=== PATIENT | male | born 1985 | race Caucasian/White ===

== ENCOUNTER 2022-02-11 15:10 | Emergency (ER) | payer OTHER ==
[2022-02-11 15:17] VITALS: BP 125/81
[2022-02-11 15:39] LABS: BASO # 0.08 K/mm3 (0.02-0.10); EOS % 1.9 % (0.0-4.0); HEMATOCRIT 39.7 % (42.0-52.0); HEMOGLOBIN 12.6 g/dL (13.5-18.0); LYMPH# 2.11 K/mm3 (1.50-4.00); MEAN CELL VOLUME 77 fl (78-100); MEAN CORPUSCULAR HEMOGLOBIN 25 pg (27-31); MEAN CORPUSCULAR HGB CONC 32 g/dL (33-37); MEAN PLATELET VOLUME 9.2 fl (7.4-10.4); NEU # 7.34 K/mm3 (1.40-6.50); PLATELET COUNT 319 K/mm3 (130-400); RED BLOOD COUNT 5.13 M/mm3 (4.20-5.60); RED CELL DISTRIBUTION WIDTH 14.2 % (11.5-14.5); WHITE BLOOD COUNT 10.6 K/mm3 (4.8-10.8)
[2022-02-11 15:51] LABS: ALBUMIN 4.3 g/dL (3.5-5.0); POTASSIUM 3.7 mmol/L (3.5-5.1)
[2022-02-11 15:52] LABS: CALCIUM 9.3 mg/dL (8.3-10.5)
[2022-02-11 15:54] LABS: TOTAL PROTEIN 7.1 g/dL (6.4-8.3)
[2022-02-11 15:57] LABS: TOTAL BILIRUBIN 0.8 mg/dL (0.2-1.2)
[2022-02-11] MEDS ORDERED: OXYCODONE HCL10 M1 PO ×2 (16:16→16:17)
== END 2022-02-11 16:19 | disposition home or self-care (01) ==
LOC: ED 15:10
PROVIDERS: Family Medicine
DX: K64.4 Residual hemorrhoidal skin tags (principal); D64.9 Anemia, unspecified; Z28.310 Unvaccinated for COVID-19

== ENCOUNTER → 2022-02-11 | Day surgery (SDC) | payer OTHER ==
[~2022-02-11] MED LIST: OXYCODONE HCL10 M1 PO
== END ==
LOC: MSO 07:14
DX: K63.5 Polyp of colon (principal); K62.6 Ulcer of anus and rectum; K62.5 Hemorrhage of anus and rectum; K64.8 Other hemorrhoids; K64.4 Residual hemorrhoidal skin tags
CPT/HCPCS: 00811; J2250; J2704; J3010; J7120

== ENCOUNTER 2024-03-01 14:01 | Emergency (ER) | payer OTHER ==
[~2024-03-01] VITALS: Ht 175.3 cm; Wt 93.2 kg
[2024-03-01] MEDS ORDERED: Ketorolac 30 MG/ML VIAL IM ONE (15:45)
[2024-03-01] MEDS ORDERED: CYCLOBENZAPRINE10 M1 PO (16:11)
[2024-03-01 16:19] VITALS: BP 118/88
== END 2024-03-01 16:28 | disposition home or self-care (01) ==
LOC: ED 14:01
DX: S19.9XXA Unspecified injury of neck, initial encounter (principal); F17.210 Nicotine dependence, cigarettes, uncomplicated; W10.8XXA Fall (on) (from) other stairs and steps, initial encounter; Y92.009 Unspecified place in unspecified non-institutional (private) residence as the place of occurrence of the external cause
CPT/HCPCS: J1885

== ENCOUNTER 2024-05-11 14:38 | Emergency (ER) | payer OTHER ==
[~2024-05-11] VITALS: Ht 175.3 cm; Wt 90.0 kg
[~2024-05-11 14:38] MED LIST changes: +CYCLOBENZAPRINE10 M1 PO
[2024-05-11 14:45] VITALS: BP 122/79
[2024-05-11] MEDS ORDERED: COLACE100 M1 PO (14:54)
[2024-05-11] MEDS ORDERED: AMOXICILLIN AND1 TA2 PO (14:57)
[2024-05-11] MEDS ORDERED: TRIAMCINOLONE A15 G2 TP (14:57)
== END 2024-05-11 15:14 | disposition home or self-care (01) ==
LOC: ED 14:38
DX: T63.441A Toxic effect of venom of bees, accidental (unintentional), initial encounter (principal); L03.113 Cellulitis of right upper limb; F17.210 Nicotine dependence, cigarettes, uncomplicated; Z88.1 Allergy status to other antibiotic agents